=== PATIENT | female | born 1985 | race Caucasian/White ===

== ENCOUNTER 2018-04-02 05:40 | Emergency (ER) | payer OTHER ==
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
[2018-04-02 05:57] VITALS: BP 109/68
== END 2018-04-02 06:08 | disposition home or self-care (01) ==
LOC: EDUNIT#
DX: S09.90XA Unspecified injury of head, initial encounter (principal); R42 Dizziness and giddiness; F41.9 Anxiety disorder, unspecified; V49.3XXA Car occupant (driver) (passenger) injured in unspecified nontraffic accident, initial encounter; Y92.9 Unspecified place or not applicable; Y93.9 Activity, unspecified; Y99.9 Unspecified external cause status; Z87.891 Personal history of nicotine dependence

== ENCOUNTER 2018-05-04 12:16 | Emergency (ER) | payer OTHER ==
--- NOTE | 2018-05-04 12:42 | EDPHY ---
H & P Stated Complaint: Left chest and left neck pain, increases with exertion. Time Seen by Provider: 05/04/18 12:41 HPI/ROS: HPI: This is a 33-year-old female who presents with Chief Complaint: Left chest and left neck pain, increases with exertion. Location: Left chest and left neck Quality: Pain Duration: Several days Signs and Symptoms: no shortness of breath at rest, + shortness of breath on exertion, no cough, no chest pain, no palpitations, no lower extremity edema, no wheezing, no orthopnea, no paroxysmal nocturnal dyspnea, no fever, no injury/ trauma, no hemoptysis, no carpal pedal spasms Timing: Acute Severity: Moderate Context: Patient has a history of anxiety, former smoker, does not take control pills, presents with sudden onset while hiking several days ago of anterior chest pain and shortness of breath on exertion. She is originally from [facility] and is familiar with increased elevation. She denies any cough, fever, lower extremity edema, swelling, calf pain. She also complains of a 3 year intermittent history of left neck pain that worsened with certain positions. She reports that she performed yoga and stretching exercises and only transiently has relief of the discomfort. No history of lung disease. Patient reports pain in left neck and chest that is reproducible when she turns her head. Pain is not positional and is not relieved when she leans forward. Denies IV drug use. No recent long distance travel. No recent long Modifying Factors: None Comment: ROS: A comprehensive 10 system review of systems is otherwise negative aside from elements mentioned in the history of present illness. MEDICAL/SURGICAL/SOCIAL HISTORY: Medical history: Anxiety. Does not take any regular medications. Surgical history: Denies Social history: Former smoker. CONSTITUTIONAL: Extremely well-appearing adult white female, [place] hair, awake and alert, no obvious distress HEENT: Atraumatic and normocephalic. NECK: supple, no midline tenderness, flexion 45 degrees, extension 45 degrees, right and left lateral flexion 45 degrees. No meningismus. Mild reproducible left paraspinous muscle tenderness with spasm. Cardiovascular: Normal S1/S2, regular rate, regular rhythm, without murmur rub or gallop. PULMONARY/CHEST: Symmetrical and nontender. no crepitus. Clear to auscultation bilaterally. Good air movement. No accessory muscle usage. ABDOMEN: Soft, nondistended, nontender, no ecchymosis. EXTREMITIES: 2/2 pulses, strength 5/5, DIP/PIP/MCP flexion/extension intact with good light touch sensation. no deformities, no clubbing, no cyanosis or edema. NEUROLOGICAL: no focal neuro deficits. GCS 15. Light touch sensation intact. SKIN: Warm and dry, no erythema. no rash. Good capillary refill. Source: Patient Exam Limitations: No limitations - Personal History Current Tetanus Diphtheria and Acellular Pertussis (TDAP): Yes - Medical/Surgical History Hx Asthma: No Hx Chronic Respiratory Disease: No Hx Diabetes: No Hx Cardiac Disease: No Hx Renal Disease: No Hx Cirrhosis: No Hx Alcoholism: No Hx HIV/AIDS: No Hx Splenectomy or Spleen Trauma: No Other PMH: ANXIETY. - Social History Smoking Status: Former smoker Constitutional: Initial Vital Signs Temperature (C) 36.6 C 05/04/18 12:16 Heart Rate 67 05/04/18 12:16 Respiratory Rate 18 05/04/18 12:16 Blood Pressure 119/52 L 05/04/18 12:16 O2 Sat (%) 96 05/04/18 12:16 O2 Delivery Mode Room Air Allergies/Adverse Reactions: alprazolam [From Xanax] Allergy (Verified 04/02/18 05:58) amphetamine aspartate [From Adderall] Allergy (Verified 04/02/18 05:58) amphetamine sulfate [From Adderall] Allergy (Verified 04/02/18 05:58) codeine Allergy (Verified 04/02/18 05:58) dextroamphetamine saccharate [From Adderall] Allergy (Verified 04/02/18 05:58) dextroamphetamine sulfate [From Adderall] Allergy (Verified 04/02/18 05:58) sulfamethoxazole [From Bactrim] Allergy (Verified 04/02/18 05:58) trimethoprim [From Bactrim] Allergy (Verified 04/02/18 05:58) Home Medications: Medication Instructions Recorded NK [No Known Home Meds] 09/28/15 Medical Decision Making - Diagnostics Imaging Results: Imaging Impressions Chest X-Ray 05/04/18 13:04 Impression: Mild enlargement of the cardiomediastinal silhouette, which could be related to cardiomegaly or pericardial effusion. ED Course/Re-evaluation: Vital signs reviewed and stable upon arrival. No hypoxia, tachycardia. Wells criteria is low for pulmonary embolism IV access and laboratory studies ordered along with EKG and chest x-ray 1328: EKG reviewed with attending shows normal sinus rhythm with a rate of 57 beats per minute with no acute ischemic changes, no arrhythmias. 1340: Labs reviewed. No signs of leukocytosis/anemia/platelet dysfunction/FAREED/ electrolyte imbalance//VTE. Chest x-ray my read shows no opacity, no effusion, no pneumothorax Advised to follow up outpatient at the [facility] and pulmonology if symptoms persist This patient was seen under the supervision of my secondary supervising physician. I evaluated care for this patient independently. Discussed this patient with Dr. Jackson who did not see the patient. Differential Diagnosis: Shortness of breath including but not limited to pulmonary infectious process, COPD, asthma, pulmonary embolus and congestive heart failure. - Data Points Laboratory Results: Laboratory Results 05/04/18 13:13 05/04/18 13:13 05/04/18 05/04/18 05/04/18 13:13 13:13 13:13 WBC RBC Hgb Hct MCV MCH MCHC RDW Plt Count MPV Neut % (Auto) Lymph % (Auto) Parker % (Auto) Eos % (Auto) Baso % (Auto) Nucleat RBC Rel Count Absolute Neuts (auto) Absolute Lymphs (auto) Absolute Monos (auto) Absolute Eos (auto) Absolute Basos (auto) Absolute Nucleated RBC Immature Gran % Immature Gran # D-Dimer < 0.27 ug/mLFEU ug/mLFEU (0.00-0.50) Sodium 136 mEq/L mEq/L (135-145) Potassium 4.5 mEq/L mEq/L (3.5-5.2) Chloride 105 mEq/L mEq/L (97-110) Carbon Dioxide 23 mEq/l mEq/l (22-31) Anion Gap 8 mEq/L mEq/L (6-14) BUN 17 mg/dL mg/dL (7-23) Creatinine 0.8 mg/dL mg/dL (0.6-1.0) Estimated GFR > 60 Glucose 87 mg/dL mg/dL (70-100) Calcium 8.8 mg/dL mg/dL (8.5-10.4) Beta HCG, Qual NEGATIVE 05/04/18 13:13 WBC 5.60 10^3/uL 10^3/uL (3.80-9.50) RBC 4.54 10^6/uL 10^6/uL (4.18-5.33) Hgb 14.1 g/dL g/dL (12.6-16.3) Hct 41.1 % % (38.0-47.0) MCV 90.5 fL fL (81.5-99.8) MCH 31.1 pg pg (27.9-34.1) MCHC 34.3 g/dL g/dL (32.4-36.7) RDW 11.6 % % (11.5-15.2) Plt Count 240 10^3/uL 10^3/uL (150-400) MPV 10.4 fL fL (8.7-11.7) Neut % (Auto) 64.7 % % (39.3-74.2) Lymph % (Auto) 27.0 % % (15.0-45.0) Parker % (Auto) 5.5 % % (4.5-13.0) Eos % (Auto) 2.1 % % (0.6-7.6) Baso % (Auto) 0.5 % % (0.3-1.7) Nucleat RBC Rel Count 0.0 % % (0.0-0.2) Absolute Neuts (auto) 3.62 10^3/uL 10^3/uL (1.70-6.50) Absolute Lymphs (auto) 1.51 10^3/uL 10^3/uL (1.00-3.00) Absolute Monos (auto) 0.31 10^3/uL 10^3/uL (0.30-0.80) Absolute Eos (auto) 0.12 10^3/uL 10^3/uL (0.03-0.40) Absolute Basos (auto) 0.03 10^3/uL 10^3/uL (0.02-0.10) Absolute Nucleated RBC 0.00 10^3/uL 10^3/uL (0-0.01) Immature Gran % 0.2 % % (0.0-1.1) Immature Gran # 0.01 10^3/uL 10^3/uL (0.00-0.10) D-Dimer Sodium Potassium Chloride Carbon Dioxide Anion Gap BUN Creatinine Estimated GFR Glucose Calcium Beta HCG, Qual Departure - Departure Disposition: Home, Routine, Self-Care Clinical Impression: Dyspnea on exertion Condition: Good Instructions: Dyspnea (ED) Additional Instructions: Establish care with the [facility] and follow-up in 5-7 days with Cardiology. Cardiology will determine if further intervention is required. Return to the ER immediately if you experience fevers/chills, continued shortness of breath, abdominal pain, inability to tolerate oral intake, or any other symptoms that concern you. Referrals: [facility],. [Clinic] - 5-7 days, call for appt. Glenn Schmid MD [Medical Doctor] - As per Instructions
--- NOTE | 2018-05-04 13:28 | CPEKG ---
Test Reason : OPEN Blood Pressure : / mmHG Vent. Rate : 057 BPM Atrial Rate : 058 BPM P-R Int : 164 ms QRS Dur : 088 ms QT Int : 436 ms P-R-T Axes : 049 021 031 degrees QTc Int : 425 ms Sinus rhythm Confirmed by Joshua Jackson ([id number]) on 05/04/2018 1:28:29 PM Referred By: Confirmed By:Joshua Jackson
[2018-05-04 13:33] LABS: PLATELET COUNT 240 10^3/uL (150-400)
[2018-05-04 14:53] VITALS: BP 117/69
== END 2018-05-04 14:53 | disposition home or self-care (01) ==
DX: R06.09 Other forms of dyspnea (principal); M54.2 Cervicalgia; R07.9 Chest pain, unspecified; F41.9 Anxiety disorder, unspecified; Z87.891 Personal history of nicotine dependence